=== PATIENT | female | born 1950 | race Caucasian/White ===

== ENCOUNTER 2017-11-30 18:37 | Emergency (ER) | payer OTHER ==
[2017-11-30 18:44] VITALS: BP 134/92; PULSE 78; RESP 16; TEMP 98.1; O2SAT 94
--- NOTE | 2017-11-30 18:45 | EDPHY ---
H & P Stated Complaint: tripped on pvc piping hit face and r knee/denies loc or neck pain Time Seen by Provider: 11/30/17 18:44 HPI/ROS: CHIEF COMPLAINT: Mechanical fall, right knee pain, nasal abrasion HISTORY OF PRESENT ILLNESS: The patient presents to the ED with complaints of right knee pain, swelling and a nasal abrasion after she fell while walking earlier today. The patient did lose consciousness. She denies any headache, neck pain, numbness or weakness. She is not anticoagulated. The patient states that she is able to weightbear however not able to flex her right knee. She reports moderate pain with attempted flexion. REVIEW OF SYSTEMS: A comprehensive 10 point review of systems is otherwise negative aside from elements mentioned in the history of present illness. Source: Patient Exam Limitations: No limitations - Personal History Current Tetanus/Diphtheria Vaccine: Yes - Medical/Surgical History Hx Asthma: No Hx Chronic Respiratory Disease: No Hx Diabetes: No Hx Cardiac Disease: No Hx Renal Disease: No Hx Cirrhosis: No Hx Alcoholism: No Hx HIV/AIDS: No Hx Splenectomy or Spleen Trauma: No Other PMH: denies - Social History Smoking Status: Never smoked - Physical Exam Exam: General Appearance: Alert, no distress Head: Atraumatic Eyes: Pupils equal, round, reactive ENT, Mouth: Nasal abrasion noted, mild nasal tenderness Neck: Nontender, trachea midline Respiratory: No chest wall tender, subcutaneous air, lungs clear bilaterally Cardiovascular: Regular rate and rhythm Abdomen: Abdomen is soft and nontender, pelvis stable Skin: No lacerations, No abrasion Back: No midline T/L/S pain Extremities: Tenderness to palpation over right patella Neurological: A&Ox3, normal motor function, normal sensory exam Constitutional: Initial Vital Signs Temperature (C) 36.7 C 11/30/17 18:40 Heart Rate 78 11/30/17 18:40 Respiratory Rate 16 11/30/17 18:40 Blood Pressure 134/92 H 11/30/17 18:40 O2 Sat (%) 94 11/30/17 18:40 O2 Delivery Mode Room Air Allergies/Adverse Reactions: ciprofloxacin [From Cipro] Allergy (Verified 11/30/17 18:40) ciprofloxacin HCl [From Cipro] Allergy (Verified 11/30/17 18:40) Home Medications: Medication Instructions Recorded Cholecalciferol Vit D3 [Vitamin D3 400 units PO DAILY 10/28/12 400 units (OTC)] Herbals/Supplements -Info Only 1 each PO AD 10/28/12 Levothyroxine [Synthroid 88 mcg 88 mcg PO DAILY06 10/28/12 (RX)] Ubidecarenone [Coenzyme Q10] 400 mg PO DAILY 10/28/12 Medical Decision Making ED Course/Re-evaluation: The patient presents to the ED after mechanical fall. She has a nonsuturable superficial laceration and abrasion on her nose. The patient complains of right knee pain. X-rays demonstrate no evidence of an obvious fracture. Her extensor mechanism is intact. I re-evaluated the patient at 8:05 p.m.. She is in no acute distress. She has been informed of the results of her x-ray. She is placed in a straight leg immobilizer and given crutches. The patient will follow up with our on-call orthopedic surgeon Dr. Tony Alvarado for any symptoms of pain, instability or swelling which persists past 3-5 days. She has been informed that we have not excluded a meniscal or ligamentous injury. Differential Diagnosis: Differential diagnosis considered includes fracture, sprain, dislocation, nasal fracture, laceration, internal derangement of the knee Departure - Departure Disposition: Home, Routine, Self-Care Clinical Impression: Nasal abrasion, Knee sprain, Abrasion Condition: Good Instructions: Knee Sprain (DC), Abrasion (ED) Additional Instructions: 1. Crutches and knee immobilizer as needed for comfort. 2. Please follow up with the orthopedic surgeon you have been referred to for any persistent pain, immobility or sensation of instability. There is no evidence of an obvious fracture noted on the x-ray today however there may be a soft tissue injury such as a injury to the ligament or meniscus which would require further evaluation. Referrals: FRANKY SKINNER [Primary Care Provider] - As per Instructions Tony Alvarado MD [Medical Doctor] - As per Instructions
== END 2017-11-30 20:15 | disposition home or self-care (01) ==
DX: S83.91XA Sprain of unspecified site of right knee, initial encounter (principal); S80.211A Abrasion, right knee, initial encounter; S00.31XA Abrasion of nose, initial encounter; W18.39XA Other fall on same level, initial encounter; Y99.8 Other external cause status; Y93.01 Activity, walking, marching and hiking
CPT/HCPCS: 73564; 99283; L1830